=== PATIENT | female | born 1950 | race Caucasian/White ===

== ENCOUNTER 2017-03-20 07:37 | Day surgery (SDC) | payer MEDICARE, BC ==
[~2017-03-20] VITALS: Ht 162.6 cm; Wt 63.6 kg
[~2017-03-20 07:37] MED LIST: ANAS1 PO
[2017-03-20] MEDS ORDERED: LETR2.5T PO (08:02)
[2017-03-20] MEDS ORDERED: PALB100C PO (08:02)
[2017-03-20 08:03] VITALS: BP 115/64; PULSE 63; RESP 20; TEMP 98; O2SAT 96
[2017-03-20] MEDS ORDERED: LEVO50TA4 PO (08:04)
[2017-03-20 08:46] LABS: AUTOMATED NEUTROPHIL # 0.9 TH/MM3 (1.8-7.7); BASOPHIL # 0.1 TH/MM3 (0-0.2); BASOPHIL % 4.1 % (0.0-2.0); EOSINOPHIL % 0.8 % (0.0-4.0); HEMATOCRIT 33.1 % (35.0-46.0); HEMOGLOBIN 12.1 GM/DL (11.6-15.3); LYMPH % 37.7 % (9.0-44.0); LYMPHOCYTE # 0.7 TH/MM3 (1.0-4.8); MEAN CELL VOLUME 103.4 FL (80.0-100.0); MEAN CORPUSCULAR HEMOGLOBIN 37.9 PG (27.0-34.0); MEAN PLATELET VOLUME 7.5 FL (7.0-11.0); MONO % 5.4 % (0.0-8.0); MONOCYTE # 0.1 TH/MM3 (0-0.9); PLATELET COUNT 153 TH/MM3 (150-450); RED CELL DISTRIBUTION WIDTH 15.1 % (11.6-17.2); WHITE BLOOD COUNT 1.8 TH/MM3 (4.0-11.0)
[2017-03-20 08:48] LABS: MEAN CORPUSCULAR HGB CONC 36.6 % (32.0-36.0)
[2017-03-20 08:57] LABS: PROTHROMBIN TIME - PATIENT 10.4 SEC (9.8-11.6)
[2017-03-20] MEDS ORDERED: SODIUM CHLOR 0.9% 1000 ML IV SCH (09:00)
[2017-03-20 09:39] LABS: BASOPHILS 4 % (0-2); LYMPHOCYTES 33 % (9-44); MONOCYTES 5 % (0-8); POLYS (SEG NEUTROPHILS) 57 % (16-70)
[2017-03-20] MEDS ORDERED: LIDOCAINE HCL 1% 20 ML VIAL ONE (09:45)
[2017-03-20] MEDS ORDERED: MIDAZOLAM HCL 2 MG/2 ML VIAL ONE (09:54)
--- NOTE | 2017-03-20 10:40 | PD.RAD ---
Post CT Procedure Prog Note Pre Procedure Diagnosis: (1) Breast ca possible bone met Post Procedure Diagnosis: Procedure Date: Mar 20, 2017 Supervising Radiologist: Hal Garza Anesthesia: Local, Conscious Sedation Plan of Activity Patient to Unit: [facility] See PACS Report for procedural detail/treatment Biopsy Imaging Guidance: CT Side: Left Biopsy Procedure: Bone Site: Left clavicle Specimen: Core Biopsy Hal Garza MD Mar 20, 2017 10:40
[2017-03-20] MEDS ORDERED: oxyCODONE/ACETAMINOPHEN 5 MG/325 MG TAB PO PRN (10:45)
[2017-03-20 10:55] VITALS: BP 114/69; PULSE 58; RESP 18; TEMP 97.9; O2SAT 94
[2017-03-20 11:10] VITALS: BP 100/64; PULSE 67; RESP 18; O2SAT 96
[2017-03-20 11:40] VITALS: BP 126/70; PULSE 64; RESP 18; O2SAT 95
--- NOTE | 2017-03-20 11:53 | RADRPT ---
EXAM DATE/TIME: 03/20/2017 10:06 [place] COMPARISON: No previous studies available for comparison. INDICATIONS : Left clavicle lesion. SEDATION TIME: 30 minutes BIOPSY SITE: Left MEDICATION(S): 1.) 1.5 mg midazolam (Versed) IV 2.) 75 mcg fentanyl (Sublimaze) IV DEVICE(S): 1.) Temno core biopsy needle 10g MEDICAL HISTORY : Carcinoma, breast. Skin cancer. SURGICAL HISTORY : Mastectomy, bilateral. ENCOUNTER: Initial ACUITY: 1 day PAIN SCORE: 0/10 LOCATION: Left A total of two core specimen(s) were obtained and sent to the laboratory for pathologic evaluation. PROCEDURE: 1. CT guided clavicle biopsy. 2. Conscious sedation with continuous EKG and oximetry monitoring. 3. EKG and oximetry remained stable throughout the procedure. Prior to the procedure informed consent was obtained. Any appropriate prior imaging studies were rev iewed. Using automated exposure control and adjustment of the mA and/or kV according to patient size, radiat ion dose was kept as low as reasonably achievable to obtain optimal diagnostic quality images. DICOM format image data is available electronically for review and comparison. The site was prepped in a sterile fashion. Full sterile technique was used, including cap, mask, dakotah rile gloves and gown and a large sterile sheet. Hand hygiene and 2% chlorhexidine and/or betadine/al cohol prep was utilized per protocol for cutaneous antisepsis. The skin and subcutaneous tissues wer e infiltrated with local anesthetic solution. With CT guidance the previously identified target was localized. Biopsy was performed using the presc ribed needle as above. Adequate hemostasis was obtained with compression at the puncture site. Follow-up CT scan reveals no hemorrhage. The patient tolerated the procedure well and there were no complications. The patient was returned to the Radiology Outpatient Unit in stable condition. CONCLUSION: Uncomplicated CT guided biopsy left clavicle. Hal Garza MD on March 20, 2017 at 11:51 Board Certified Radiologist. This report was verified electronically.
[2017-03-20 12:10] VITALS: BP 100/60; PULSE 70; RESP 18; O2SAT 96
== END 2017-03-20 12:51 | disposition home or self-care (01) ==
LOC: HRAD 07:37 → HRIP 07:38 → HRAD 12:51
PROVIDERS: ATTEND Internal Medicine Hematology & Oncology
DX: C79.52 Secondary malignant neoplasm of bone marrow (principal); C50.911 Malignant neoplasm of unspecified site of right female breast
CPT/HCPCS: 20220; 77012; 85007; 85027; 85610; 85730; 88307; 88311; 88341; 88342; 99152; 99153; C1830; J2250; J3010; J7030; 88305

== ENCOUNTER 2017-08-03 07:50 | Day surgery (SDC) | payer MEDICARE, BC ==
[2017-08-03] VITALS (8 sets, daily range): BP systolic 95–121; BP diastolic 59–69; PULSE 55–61; RESP 16–20; TEMP 97.7–97.9; O2SAT 91–98
[~2017-08-03] VITALS: Ht 165.1 cm; Wt 63.6 kg
[~2017-08-03 07:50] MED LIST changes: -ANAS1 PO; +LETR2.5T PO; +LEVO50TA4 PO; +PALB100C PO
[2017-08-03] MEDS ORDERED: PANC3600 PO (08:27)
[2017-08-03] MEDS ORDERED: MAGN250T11 PO (08:27)
[2017-08-03] MEDS ORDERED: VITA200013 (08:27)
[2017-08-03] MEDS ORDERED: CYAN1TAB24 PO (08:27)
[2017-08-03] MEDS ORDERED: MULTTAB67 PO (08:27)
[2017-08-03] MEDS ORDERED: SODIUM CHLOR 0.9% 1000 ML IV SCH (08:30)
[2017-08-03] MEDS ORDERED: MIDAZOLAM HCL 5 MG/5 ML VIAL ONE (09:45)
[2017-08-03] MEDS ORDERED: fentaNYL CITRATE 250 MCG/5 ML AMP ONE (09:45)
--- NOTE | 2017-08-03 11:09 | PD.RAD ---
Post CT Procedure Prog Note Pre Procedure Diagnosis: (1) Mass of left lung Post Procedure Diagnosis: (1) Mass of left lung Procedure Date: August 03, 2017 Supervising Radiologist: Hal Garza Anesthesia: Local, Conscious Sedation Plan of Activity Patient to Unit: [facility] Patient Condition: Good See PACS Report for procedural detail/treatment Biopsy Imaging Guidance: CT Side: Left Biopsy Procedure: Lung Specimen: Core Biopsy Hal Garza MD August 03, 2017 11:09
[2017-08-03] MEDS ORDERED: oxyCODONE/ACETAMINOPHEN 5 MG/325 MG TAB PO PRN (11:15)
--- NOTE | 2017-08-03 13:26 | RADRPT ---
EXAM DATE: 08/03/2017 1:22 PM EDT AGE/SEX: 67 years / Female INDICATIONS: Status post left lung biopsy. CLINICAL DATA: This is the patient's initial encounter. Patient reports that signs and symptoms have been present for 1 day and indicates a pain score of 0/10. MEDICAL/SURGICAL HISTORY: Gastroesophageal reflux disease. None. COMPARISON: No prior [facility] exams available for comparison. FINDINGS: A single frontal expiratory view of the chest was performed. No significant pneumothorax. Biopsied ma ss in the left upper lobe near the apex is again noted. Cardiomediastinal contours are within normal limits. Bony thorax is intact. CONCLUSION: 1. No significant pneumothorax status post left apical mass biopsy. Electronically signed by: Tutu Davis MD 08/03/2017 1:25 PM EDT
--- NOTE | 2017-08-03 15:41 | RADRPT ---
EXAM DATE: 08/03/2017 12:39 PM EDT AGE/SEX: 67 years / Female INDICATIONS: Left lung mass. CLINICAL DATA: This is the patient's initial encounter. Patient reports that signs and symptoms have been present for 1 day and indicates a pain score of 0/10. MEDICAL/SURGICAL HISTORY: Carcinoma, breast. Metastatic disease. Mastectomy, bilateral. Tonsi llectomy. Tubal ligation. Right chest wall excision. COMPARISON: [facility] – [place], CHEST EXPIRATION ONLY, 08/03/2017. . SEDATION TIME (min): 30 BIOPSY SITE: Left lung MEDICATION(S): 1.5 mg midazolam (Versed) IV 75 mcg fentanyl (Sublimaze) IV DEVICE(S): 20 gauge BARD biopsy needle Three . . PROCEDURE: CT guided Left lung biopsy Conscious sedation with continuous EKG and oximetry monitoring. Prior to the procedure informed consent was obtained. Any appropriate prior imaging studies were rev iewed. Using automated exposure control and adjustment of the mA and/or kV according to patient size , radiation dose was kept as low as reasonably achievable to obtain optimal diagnostic quality images . DICOM format image data is available electronically for review and comparison. The site was prepped in a sterile fashion. Full sterile technique was used, including cap, mask, dakotah rile gloves and gown and a large sterile sheet. Hand hygiene and 2% chlorhexidine and/or betadine/al cohol prep was utilized per protocol for cutaneous antisepsis. The skin and subcutaneous tissues wer e infiltrated with local anesthetic solution. With CT guidance the previously identified target was localized. Biopsy was performed using the presc ribed needle as above. Adequate hemostasis was obtained with compression at the puncture site. Follow-up CT scan reveals no pneumothorax. Conscious sedation was performed with the prescribed dosages and duration as above in the presence of an independent trained radiology nurse to assist in the monitoring of the patient. EKG and oximetry remained stable throughout the procedure. The patient tolerated the procedure well and there were no complications. The patient was sent to Radiology Outpatient Unit in stable condition. CONCLUSION: 1. Uncomplicated CT guided biopsy. Electronically signed by: Hal Garza MD 08/03/2017 3:40 PM EDT
== END 2017-08-03 15:00 | disposition home or self-care (01) ==
LOC: HRAD 07:50 → HRIP 07:51 → HRAD 15:00
PROVIDERS: ATTEND Internal Medicine Hematology & Oncology
DX: R91.8 Other nonspecific abnormal finding of lung field (principal); K21.9 Gastro-esophageal reflux disease without esophagitis; Z85.3 Personal history of malignant neoplasm of breast
CPT/HCPCS: 32405; 71045; 77012; 88305; 99152; 99153; J2250; J3010; J7030

== ENCOUNTER 2017-09-06 08:51 | Day surgery (SDC) | payer MEDICARE, BC ==
[2017-09-06] VITALS (10 sets, daily range): BP systolic 101–114; BP diastolic 62–77; PULSE 55–73; RESP 16–18; TEMP 97.8–98.2; O2SAT 93–98
[~2017-09-06] VITALS: Ht 165.1 cm; Wt 63.6 kg
[~2017-09-06 08:51] MED LIST changes: +CYAN1TAB24 PO; +MAGN250T11 PO; +MULTTAB67 PO; +PANC3600 PO; +VITA200013
[2017-09-06] MEDS ORDERED: SODIUM CHLOR 0.9% 1000 ML INJ 1,000 ML IV SCH (09:45)
[2017-09-06] MEDS ORDERED: MIDAZOLAM HCL 2 MG/2 ML VIAL ONE (11:05)
--- NOTE | 2017-09-06 12:08 | PD.RAD ---
Post US Procedure Prog Note Pre Procedure Diagnosis: (1) Liver mass Post Procedure Diagnosis: (1) Liver mass Procedure Date: Sep 06, 2017 Supervising Radiologist: Juanito Hickey Proceduralist/Assist: Jana Braun RDMS Anesthesia: Local, Analgesia, Conscious Sedation Plan of Activity Patient to Unit: [facility] Patient Condition: Good See PACS Report for procedural detail/treatment Biopsy Imaging Guidance: Ultrasound Side: Right Biopsy Procedure: Liver Specimen: Core Biopsy (18 gauge) Juanito Hickey MD Sep 06, 2017 12:08
[2017-09-06] MEDS ORDERED: LIDOCAINE HCL 1% PF 30 ML VIAL ONE (12:10)
--- NOTE | 2017-09-06 13:46 | RADRPT ---
EXAM DATE: 09/06/2017 12:21 PM EDT AGE/SEX: 67 years / Female INDICATIONS: Right liver lobe lesion. CLINICAL DATA: This is the patient's initial encounter. Patient reports that signs and symptoms have been present for 3 days and indicates a pain score of 0/10. MEDICAL/SURGICAL HISTORY: Arthritis. Carcinoma, breast. Thyroid disease. GERD. Mastectomy, bi lateral. Tubal ligation. COMPARISON: No prior exams available for comparison. MEDICATION(S): 50mg fentanyl (Sublimaze) IV ORGAN: Right liver lobe SPECIMEN(S): One core specimen(s) submitted for pathologic evaluation. DEVICE(S): 18 gauge Temno needle SEDATION TIME (min): 11:33 Post procedure scanning reveals no hematoma or other complication. The possibility does exist that the tissue obtained will be non-diagnostic. If the sample is non-diag nostic, a repeat biopsy or surgical biopsy may need to be performed. TECHNIQUE: 1. Ultrasound guidance for needle biopsy. 2. Needle biopsy. 3. Conscious sedation with continuous EKG and oximetry monitoring. 4. EKG and oximetry remained stable throughout the procedure. . . FINDINGS: The risks, benefits and alternatives to the procedure were explained and verbal and written consent w as obtained. The site was prepped in sterile fashion. Full sterile technique was used, including ca p, mask, sterile gloves and gown and a large sterile sheet. Hand hygiene and 2% chlorhexidine and/or betadine/alcohol prep was utilized per protocol for cutaneous antisepsis. The skin and subcutaneous tissues were infiltrated with local anesthetic solution. Sterile gel and sterile probe cover were u tilized for ultrasound guidance. With the patient on the ultrasound table, images were obtained. A needle was advanced into the identified target and a single specimen was obtained and submitted for pathologic evaluation. The patient tolerated the procedure well and left the ultrasound suite in stable condition. CONCLUSION: Ultrasound-guided liver biopsy. Electronically signed by: Juanito Hickey MD 09/06/2017 1:44 PM EDT
== END 2017-09-06 15:30 | disposition home or self-care (01) ==
LOC: HRAD 08:51 → HRIP 08:52 → HRAD 15:30
PROVIDERS: ATTEND Internal Medicine Hematology & Oncology
DX: C78.7 Secondary malignant neoplasm of liver and intrahepatic bile duct (principal); C79.51 Secondary malignant neoplasm of bone; C78.1 Secondary malignant neoplasm of mediastinum; C50.019 Malignant neoplasm of nipple and areola, unspecified female breast; Z17.0 Estrogen receptor positive status [ER+]; Z92.3 Personal history of irradiation; K21.9 Gastro-esophageal reflux disease without esophagitis; M19.90 Unspecified osteoarthritis, unspecified site; D64.9 Anemia, unspecified; E03.9 Hypothyroidism, unspecified; D70.9 Neutropenia, unspecified; Z79.811 Long term (current) use of aromatase inhibitors
CPT/HCPCS: 47000; 76942; 88307; 88341; 88342; J2250; J3010; 99211; G0463